=== PATIENT | female | born 1955 | race Caucasian/White ===

== ENCOUNTER 2022-06-18 15:44 | Emergency (ER) | payer BC, SELFPAY ==
[2022-06-18 15:54] VITALS: BP 151/73; PULSE 89; RESP 18; TEMP 36.9; O2SAT 100
[2022-06-18 16:13] VITALS: BP 151/73; PULSE 89; RESP 18; TEMP 36.9; O2SAT 100
--- NOTE | 2022-06-18 16:14 | ED.WOUNDLAC ---
HPI - Wound/Laceration General Chief Complaint: Wound/Laceration Stated Complaint: lac left leg Time Seen by Provider: 06/18/22 16:25 Source: patient, RN notes reviewed and old records reviewed Mode of arrival: ambulatory Limitations: no limitations History of Present Illness HPI narrative: 67 year old female who presents to [facility] with complaints of hitting her left lower leg with the car door today and sustained a skin tear to the lateral area which is 1cm in diameter with no acute bleeding at this time. Patient concerned since she was having intermittent bleeding from area at home and she has some peripheral circulation problems and is diabetic. Onset (ago): day(s) (this morning at 1100) Extremity Location: Left: lower leg Patient tetanus UTD: Yes Related Data Home Medications Medication Instructions Recorded Confirmed meloxicam 15 mg tablet mg 06/18/22 metformin 1,000 mg tablet mg 06/18/22 Allergies Allergy/AdvReac Type Severity Reaction Status Date / Time No Known Allergies Allergy Unverified 06/18/22 15:54 Review of Systems Review of Systems: CONSTITUTIONAL: Denies fever, chills, or sweats. EYES: Denies visual changes, redness, or discharge. ENT: Denies rhinorrhea, congestion, sore throat, or otalgia. CARDIOVASCULAR: Denies chest pain, palpitations, or edema. RESPIRATORY: Denies cough or dyspnea. GASTROINTESTINAL: Denies abdominal pain, nausea, vomiting, or diarrhea. GENITOURINARY: Denies dysuria or hematuria. SKIN: Denies rash or itching. 1 cm diameter skin tear to lateral left lower leg MUSCULOSKELETAL: Denies back pain, joint pain, or myalgia. NEUROLOGIC: Denies headache, numbness, or weakness. PSYCHIATRIC: Denies anxiety or depression. All systems reviewed & are unremarkable except as noted in HPI and below [facility] Past Medical History Medical History (Updated 06/21/22 @ 07:43 by Kerrie Banks NP) Arthritis Diabetes Surgical History Surgical History (Updated 06/21/22 @ 07:44 by Kerrie Banks NP) H/O repair of left rotator cuff History of dilatation and curettage Hx of knee surgery Bilateral knee surgery Social History Social History (Updated 06/21/22 @ 07:43 by Kerrie Banks NP) Smoking status: Never smoker Alcohol intake: current Alcohol use details: Rare social Substance use type: does not use Living arrangements: with family Gender identity (if verbalized by the patient): Female Comments At time of signature, agree with nursing past medical, surgical, social and family history. There is no relevant family history pertinent to the presenting complaint Exam Narrative: GENERAL: Well-appearing, well-nourished, obese and in no acute distress. HEAD: Normocephalic, atraumatic. EYES: PERRLA and EOMI. ENT: Nares clear, no rhinorrhea or epistaxis. Mucous membranes moist. TMs normal throat pink with no lesions or swelling NECK: Supple. No lymphadenopathy CHEST: Clear to auscultation. No respiratory distress. SaO2 100% on room air HEART: Regular rate and rhythm. No murmur heard. Normal peripheral pulses. ABDOMEN: Soft, nontender, nondistended, normal active bowel sounds. EXTREMITIES: Normal range of motion. No edema. Large legs no acute swelling noted SKIN: Warm, dry, no rash. 1 cm diameter skin tear to left lateral lower leg, top skin layer covering underlying wound with no acute bleeding, no acute redness surrounding wound, NEURO: No focal deficits. Alert and oriented x3. Course Course Level of Care: Express Care Visit Vital Signs Vital signs: Vital Signs Temperature 36.9 C 06/18/22 15:54 Pulse Rate 89 06/18/22 15:54 Respiratory Rate 18 06/18/22 15:54 Blood Pressure 151/73 H 06/18/22 15:54 Pulse Oximetry 100 06/18/22 15:54 Oxygen Delivery Room Air 06/18/22 15:54 Temperature 36.9 C 06/18/22 16:13 Pulse Rate 89 06/18/22 16:13 Respiratory Rate 18 06/18/22 16:13 Blood Pressure 151/73 H 06/18/22 16:13 Pulse Oximetry
== END 2022-06-18 17:32 | disposition home or self-care (01) ==
PROVIDERS: Emergency Provider Registered Nurse
DX: S81.812A Laceration without foreign body, left lower leg, initial encounter (principal); W22.8XXA Striking against or struck by other objects, initial encounter; E11.9 Type 2 diabetes mellitus without complications; M19.90 Unspecified osteoarthritis, unspecified site
CPT/HCPCS: 99213; G0463

== ENCOUNTER 2022-11-25 07:35 | Outpatient (CLI) | payer BC, SELFPAY ==
--- NOTE | ~2022-11-25 | MM_ITS ---
EXAMINATION: MM screening munir BI w daryl HISTORY: Screening mammogram TECHNIQUE: Craniocaudal and mediolateral oblique 3-D tomosynthesis images were obtained and synthetic 2-D images were generated. CAD analysis was submitted and interpreted. COMPARISON: No prior mammogram is available for comparison at this institution. BREAST PARENCHYMAL COMPOSITION: There are scattered areas of fibroglandular density. FINDINGS: A cluster of grouped microcalcifications is noted in the upper inner left breast. Diagnosti c left mammogram with magnification views is recommended. Otherwise no suspicious mass, architectural distortion, malignant calcification, skin thickening or r etraction of either breast is evident. IMPRESSION: 1. Upper inner quadrant left microcalcifications 2. Diagnostic left mammogram with magnification views is recommended BI-RADS Category 0: Incomplete: Needs additional imaging evaluation. Reviewed, dictated and finalized at location A. [employer]
--- NOTE | ~2022-11-25 | DEXA_ITS ---
Bone Density Report Name: SISI ANDREWS V Age: 67 Sex: Female Ethnicity: White Date of : 1955 Indication: postmenopausal; screening for osteoporosis; height loss; rheumatoid arthritis; Referring Provider: UNKNOWN, UNKNOWN Study: Bone densitometry was performed. Exam Date: November 25, 2022 Accession number: [id number] Bone Density: Region BMD T-score Z-score Classification AP Spine(L1-L4) 1.091 0.4 2.2 Normal Femoral Neck (Left) 0.591 -2.3 -0.8 Osteopenia Total Hip (Left) 0.847 -0.8 0.5 Normal Femoral Neck (Right) 0.613 -2.1 -0.6 Osteopenia Total Hip (Right) 0.817 -1.0 0.2 Normal Total Hip Mean 0.832 -0.9 0.4 Normal World Health Organization criteria for BMD impression classify patients as: Normal (T-score at or above -1.0), Osteopenia (T-score between -1.0 and -2.5), or Osteoporosis (T-score at or below -2.5). 10-year Fracture Risk(1): Major Osteoporotic Fracture 13% Hip Fracture 2.4% Reported Risk Factors: [place] (), Neck BMD=0.591, BMI=41.4, rheumatoid arthritis (1) FRAX(R) Version 3.08. Fracture probability calculated for an untreated patient. Fracture probability may be lower if the patient has received treatment. Clinical Information Provided by Patient: Has rheumatoid arthritis Has used the following medications: Vitamin D, Calcium Patient maximum height was 67 Menopause Age: 47 Onset of menses at age 14 Number of children 3 Impression: The patient has low bone mass, based on the Left Femoral Neck T-score. The patient has an estimated ten-year risk of hip fracture of 2.4% and an estimated ten-year risk of major fracture of 13%, based on the WHO FRAX algorithm. Discussion: BONE DENSITY IS LOW AT ONE OR MORE SKELETAL SITES. This patient's lowest T-score is low at one or more skeletal sites. It meets the World Health Organization's (WHO) criteria for ?low bone mass? (T-score between -1.0 and -2.5). The patient's 10-year risk of fracture as calculated by FRAX is less than the threshold where pharmacological therapy is recommended by the National Osteoporosis Foundation (NOF). However, all treatment decisions require clinical judgment and consideration of individual patient factors, including patient preferences, comorbidities, previous drug use, risk factors not captured in the FRAX model (e.g., frailty, falls, vitamin D deficiency, increased bone turnover, interval significant decline in bone density) and possible under or overestimation of fracture risk by FRAX. The patient should follow a healthful lifestyle (good nutrition with adequate calcium and vitamin D, and appropriate weight-bearing exercise). Follow-Up: Consider repeating this study in 2 to 3 years to reassess this patient's status, or sooner if there is some new clinical indication. Report
== END 2022-11-25 07:36 | disposition home or self-care (01) ==
PROVIDERS: PCP Internal Medicine
DX: Z12.31 Encounter for screening mammogram for malignant neoplasm of breast (principal); Z78.0 Asymptomatic menopausal state; R92.8 Other abnormal and inconclusive findings on diagnostic imaging of breast; M85.852 Other specified disorders of bone density and structure, left thigh; M85.851 Other specified disorders of bone density and structure, right thigh
CPT/HCPCS: 77063; 77067; 77080

== ENCOUNTER 2023-01-22 13:24 | Outpatient (CLI) | payer BC, SELFPAY ==
--- NOTE | ~2023-01-22 | MM_ITS ---
EXAMINATION: MM diagnostic munir LT w daryl HISTORY: Left breast calcifications on screening mammogram TECHNIQUE: Magnification views of the left breast were performed. CAD analysis was submitted and inte rpreted. COMPARISON: 11/25/2022 FINDINGS: There are small, grouped, coarse heterogeneous calcifications in the middle third of the up per inner quadrant of the breast at the 11:00 location, 11 cm from the nipple. No suspicious mass or architectural distortion are identified. IMPRESSION: 1. Indeterminate left breast calcifications. 2. Stereotactic biopsy is recommended. BI-RADS category 4, suspicious findings. Reviewed, dictated and finalized at location A.
== END 2023-01-22 13:25 | disposition home or self-care (01) ==
PROVIDERS: PCP Internal Medicine
DX: R92.0 Mammographic microcalcification found on diagnostic imaging of breast (principal); R92.8 Other abnormal and inconclusive findings on diagnostic imaging of breast
CPT/HCPCS: 77061; 77065; G0279